=== PATIENT | female | born 1990 | race Caucasian/White ===

== ENCOUNTER → 2023-12-29 | Outpatient (CLI) | payer OTHER, SELFPAY | PROVIDERS: PCP Student in an Organized Health Care Education/Training Program; Referring Provider Internal Medicine; Visit Provider Internal Medicine | DX: Z23 Encounter for immunization (principal) | CPT/HCPCS: 90471; 90656 ==

== ENCOUNTER → 2024-02-09 07:38 | Outpatient (CLI) | payer OTHER, SELFPAY ==
[2024-02-09 10:38] LABS: Urine N gonorrhoeae NOT DETECTED
[2024-02-09 10:40] LABS: Urine Chlamydia NOT DETECTED
[2024-02-10 05:37] LABS: RPR Screen Non Reactive (Non Reactive)
[2024-02-10 17:43] LABS: HIV 1 & 2 Ab/Ag 4th Gen Combo NEGATIVE (NEGATIVE); Hep C Virus Ab w/Reflex Quant REACTIVE s/c (NEGATIVE)
== END ==
PROVIDERS: PCP Student in an Organized Health Care Education/Training Program; Referring Provider Student in an Organized Health Care Education/Training Program; Visit Provider Student in an Organized Health Care Education/Training Program
DX: Z20.2 Contact with and (suspected) exposure to infections with a predominantly sexual mode of transmission (principal)
CPT/HCPCS: 36415; 86592; 86803; 87389; 87491; 87522; 87591

== ENCOUNTER → 2024-02-11 12:52 | Outpatient (CLI) | payer OTHER, SELFPAY ==
[2024-02-14 16:21] LABS: Hep C Virus Ab w/Reflex Quant REACTIVE s/c (NEGATIVE)
== END ==
LOC: LAB 12:52
PROVIDERS: PCP Student in an Organized Health Care Education/Training Program; Referring Provider Student in an Organized Health Care Education/Training Program; Visit Provider Student in an Organized Health Care Education/Training Program
DX: Z20.2 Contact with and (suspected) exposure to infections with a predominantly sexual mode of transmission (principal)
CPT/HCPCS: 36415; 86803

== ENCOUNTER → 2024-08-25 07:56 | Outpatient (CLI) | payer OTHER, SELFPAY ==
[2024-08-25 13:44] LABS: Add Manual Diff / Slide Review NO; Basophils Absolute Auto 0 /uL (0-100); Basophils Percent Auto 0.8 % (0-2); Eosinophils Absolute Auto 100 /uL (0-450); Eosinophils Percent Auto 1.5 % (2-4); Hematocrit 39.3 % (36-46); Hemoglobin 13.4 g/dL (12.0-16.0); Lymphocytes Absolute Auto 1600 /uL (1100-4500); Lymphocytes Percent Auto 27.9 % (25-40); Mean Corpuscular HGB Conc 34.1 % (30-36); Mean Corpuscular Hemoglobin 27.1 PG (26-34); Mean Corpuscular Volume 79.6 fL (80-100); Monocytes Absolute Auto 300 /uL (0-900); Monocytes Percent Auto 5.8 % (3-14); Neutrophils Absolute Auto 3700 /uL (1500-7000); Platelet Count 293 X10^3/uL (150-400); Red Blood Cell Count 4.94 X10^6/uL (4.0-5.2); Red Cell Distribution Width 13.8 % (11.6-14.8); White Blood Cell Count 5.7 X10^3/uL (4.5-11.0)
[2024-08-26 15:57] LABS: Hepatitis B Surface Antigen NEGATIVE s/c (NEGATIVE)
[2024-08-26 16:14] LABS: HIV 1 & 2 Ab/Ag 4th Gen Combo NEGATIVE (NEGATIVE); Hep C Virus Ab w/Reflex Quant REACTIVE s/c (NEGATIVE)
[2024-08-27 14:36] LABS: Treponema pallidum Antibodies Non Reactive (Non Reactive)
[2024-09-04 23:39] LABS: Anti Mullerian Hormone 0.864 ng/mL (.)
== END ==
PROVIDERS: PCP Student in an Organized Health Care Education/Training Program; Referring Provider Obstetrics & Gynecology; Visit Provider Obstetrics & Gynecology
DX: Z31.41 Encounter for fertility testing (principal)
CPT/HCPCS: 36415; 82397; 85025; 86780; 86803; 87340; 87389; 87522

== ENCOUNTER → 2024-10-03 07:06 | Outpatient (CLI) | payer OTHER, SELFPAY ==
[2024-10-03 09:03] LABS: Estradiol, Total 20.1 pg/mL
== END ==
PROVIDERS: PCP Student in an Organized Health Care Education/Training Program; Referring Provider Obstetrics & Gynecology; Visit Provider Obstetrics & Gynecology
DX: Z31.83 Encounter for assisted reproductive fertility procedure cycle (principal)
CPT/HCPCS: 36415; 82670

== ENCOUNTER → 2024-10-11 06:29 | Outpatient (CLI) | payer OTHER, SELFPAY ==
--- NOTE | 2024-10-11 06:32 | DI.US.S_ITS ---
PROCEDURE: US TRANSVAGINAL INDICATIONS: Fertility procedure cycle TECHNIQUE: Real-time scanning was performed of the pelvic organs, with image documentation. Additional endovaginal scanning was necessary due to incomplete visualization of the adnexal and endometrial structures by transabdominal scanning. COMPARISON: None. FINDINGS: Uterus: Uterus is anteverted and normal in size at 8.1 x 2.8 x 5.8 cm. The myometrium is homogeneous. The endometrium measures 4.2 mm combined thickness. Normal trilaminated appearance of the endometrium is seen. No endometrial mass or fluid. Ovaries: The right ovary measures 1.7 x 4.4 x 1.8 cm, with a calculated ovarian volume of 7.0 cc. The left ovary measures 3.2 x 3.3 x 1.5 cm, with a calculated ovarian volume of 8.0 cc. Less than 12 follicles can be seen in each ovary. No adnexal masses are seen. 3 follicles are noted in right ovary measures greater than 1 cm in size and measures 1.0 x 0.9 x 0.5 cm, 1.1 x 0.8 x 1.2 cm and 1.1 x 0.8 x 1.1 cm in size. 4 follicles greater than 1 cm in size is seen in left ovary, and measures 1.0 x 0.9 x 1.0 cm, 1.2 x 0.9 x 1.3 cm, 1.5 by was 0.9 x 1.2 cm and 1.2 x 0.5 x 1.1 cm in size. Other: No pathologic free abdominal or pelvic fluid. IMPRESSION: 3 follicles greater than 1 cm in size seen in right ovary as above. 4 follicles greater than 1 cm in size seen in left ovary as above. We strive to produce accurate, complete, and clear reports of imaging services. To assist us in improving patient care, this report was composed using standard report templates and voice recognition software. Therefore, it may contain abnormal punctuation, insertions and/or omissions. Occasional wrong-word or sound-alike substitutions may occur. Though we review the report and make efforts to correct it, we do recommend that the report be read carefully in proper context to recognize any text inaccuracies. Dictated by: Kolby Moura M.D. on 10/11/2024 at 7:53 Approved by: Kolby Moura M.D. on 10/11/2024 at 7:57
[2024-10-11 08:06] LABS: Estradiol, Total 250.1 pg/mL
== END ==
PROVIDERS: PCP Student in an Organized Health Care Education/Training Program; Referring Provider Obstetrics & Gynecology; Visit Provider Obstetrics & Gynecology
DX: Z31.83 Encounter for assisted reproductive fertility procedure cycle (principal)
CPT/HCPCS: 36415; 76830; 82670

== ENCOUNTER → 2024-10-13 07:32 | Outpatient (CLI) | payer OTHER, SELFPAY ==
--- NOTE | 2024-10-13 07:36 | DI.US.S_ITS ---
PROCEDURE: US TRANSVAGINAL INDICATIONS: Encounter for assisted reproductive fertility TECHNIQUE: Real-time scanning was performed of the pelvic organs, with image documentation. Additional endovaginal scanning was necessary due to incomplete visualization of the adnexal and endometrial structures by transabdominal scanning. COMPARISON: [facility], [place], US TRANSVAGINAL, 10/11/2024, 6:44. FINDINGS: Uterus: Uterus is anteverted and normal in size at 9.1 x 3.6 x 5.1 cm. The myometrium is homogeneous. The endometrium measures 8.8 mm combined thickness. No focal lesion seen. Ovaries: The right ovary measures 3.6 x 2.2 x 2.2 cm, with a calculated ovarian volume of 9.1 cc. There are 3 follicles larger than 1 cm in the right ovary, measuring up to 1.4 cm. The left ovary measures 4.2 x 1.8 x 3.1 cm, with a calculated ovarian volume of 12.4 cc. There are 6 follicles larger than 1 cm on the left, measuring up to 1.8 cm. Other: No pathologic free abdominal or pelvic fluid. IMPRESSION: Three follicles larger than 1 cm on the right and 6 follicles larger than 1 cm on the left. We strive to produce accurate, complete, and clear reports of imaging services. To assist us in improving patient care, this report was composed using standard report templates and voice recognition software. Therefore, it may contain abnormal punctuation, insertions and/or omissions. Occasional wrong-word or sound-alike substitutions may occur. Though we review the report and make efforts to correct it, we do recommend that the report be read carefully in proper context to recognize any text inaccuracies. Dictated by: Ignacio Nieves M.D. on 10/14/2024 at 18:28 Approved by: Ignacio Nieves M.D. on 10/14/2024 at 18:31
[2024-10-13 08:58] LABS: Estradiol, Total 406.0 pg/mL
== END ==
LOC: US 07:34
PROVIDERS: PCP Student in an Organized Health Care Education/Training Program; Referring Provider Obstetrics & Gynecology; Visit Provider Obstetrics & Gynecology
DX: Z31.83 Encounter for assisted reproductive fertility procedure cycle (principal)
CPT/HCPCS: 36415; 76830; 82670